=== PATIENT | male | born 1995 | race Caucasian/White ===

== ENCOUNTER 2016-05-15 09:43 | Emergency (ER) | payer MEDICAID, OTHER ==
[~2016-05-15] VITALS: Wt 120.0 kg
[~2016-05-15 09:43] MED LIST: AMOXICILLIN; FLONASE
--- NOTE | 2016-05-15 11:20 | RADRPT ---
PROCEDURE: XR Chest. CLINICAL INDICATION: Hemoptysis. TECHNIQUE: Single frontal view. COMPARISON: 02/25/2012. FINDINGS: The lungs are clear. The heart size is normal. There is no pleural effusion. There is no pneumothorax. IMPRESSION: 1. Normal chest radiograph. 2. No change from 02/25/2012. RPTAT: QQ .Miguelito Peters MD, MD Date Time Electronically viewed and signed by .Miguelito Peters MD, MD on 05/15/2016 11:20 .R/
[2016-05-15] MEDS ORDERED: D-ME473S18 PO (11:38)
[2016-05-15] MEDS ORDERED: AZIT250T94 PO (11:38)
--- NOTE | 2016-05-15 11:42 | ERD ---
ER Documentation Chief Complaint Date/Time DATE: 05/15/16 TIME: 11:40 Chief Complaint HEMOPTYSIS X 3 DAYS HPI This 20-year-old male presents with a productive cough for last 3 days. He has had some blood-tinged sputum. Denies fevers, shortness breath, chest pain, vomiting or abdominal pain. Patient states that he is recovering from a left tympanic membrane traumatic perforation sustained 2 weeks ago per ROS All systems reviewed and are negative except as per history of present illness. Medications Home Meds Active Scripts Dextromethorphan Hb-Promethazine Hcl (Promethazine DM Syrup) 473 Ml Syrup, 5 ML PO Q6H Y for COUGH, #4 OZ Prov:MERT CARROLL MD 05/15/16 Azithromycin* (Zithromax*) 250 Mg Tablet, 250 MG PO .ZPACK DIRECTED, #6 TAB TAKE 500 MG (2 TABS) THE FIRST DAY THEN 250 MG (1 TAB) DAYS 2-5 Prov:MERT CARROLL MD 05/15/16 Reported Medications [Flonase] No Conflict Check 02/25/12 [Amoxicillin] No Conflict Check 02/25/12 Allergies Allergies: Coded Allergies: No Known Allergy (Unverified , 02/25/12) PMhx/Soc Hx Alcohol Use: No Hx Substance Use: No Hx Tobacco Use: No Physical Exam Vitals Vital Signs Date Time Temp Pulse Resp B/P Pulse Ox O2 Delivery O2 Flow Rate FiO2 05/15/16 09:49 98.0 89 18 135/79 99 Physical Exam Const: [] Alert, [id number]. Head: Atraumatic Eyes: Normal Conjunctiva ENT: Normal External Ears, Nose and Mouth. Left TM is red with decreased light reflex. There is a healing perforation with no active bleeding or discharge. Tonsils 2+ with erythema. There is postnasal drip. Neck: Full range of motion..~ No meningismus. Resp: Clear to auscultation bilaterally Cardio: Regular rate and rhythm, no murmurs Abd: Soft, non tender, non distended. Normal bowel sounds Skin: No petechiae or rashes Back: No midline or flank tenderness Ext: No cyanosis, or edema Neur: Awake and alert Psych: Normal Mood and Affect Procedures/MDM Chest X-ray 1V Interpreted by me: Soft Tissue: No acute abnormalities Bones: No acute abnormalities Mediastinum/Cardiac Silhouette/Lungs: [No acute abnormalities]. Impression- normal 1 view chest x-ray Patient presents with URI symptoms productive cough and signs of otitis media. Will treat with Zithromax, promethazine. There is no evidence of hypoxemia, respiratory distress. The patient was stable with no new complaints during the ER course. Clinically, there is no current evidence to suggest meningitis, sepsis, acute abdomen, pneumonia, acute coronary syndrome, pulmonary embolism, or any other emergent condition appearing to require further evaluation or hospitalization. The patient should certainly return for any new or worsening symptoms per the aftercare instructions. They should otherwise follow-up with her primary care doctor for reevaluation this week. Departure Diagnosis: Primary Impression: Otitis media Otitis media type: suppurative Laterality: left Chronicity: acute Recurrence: not specified as recurrent Spontaneous tympanic membrane rupture: without spontaneous rupture Qualified Code: H66.002 - Acute suppurative otitis media of left ear without spontaneous rupture of tympanic membrane, recurrence not specified Additional Impressions: Cough Bronchitis Condition: Stable Patient Instructions: Acute Bronchitis, Otitis Media, Abx Tx (Adult) Additional Instructions: X-ray normal today. We will treat for bronchitis and ear infection. Recheck for new or worsening symptoms with primary care doctor. MERT CARROLL MD May 15, 2016 11:42
== END 2016-05-15 11:47 | disposition home or self-care (01) ==
LOC: FTE 09:43
DX: H66.002 Acute suppurative otitis media without spontaneous rupture of ear drum, left ear (principal); J20.9 Acute bronchitis, unspecified
CPT/HCPCS: 71010; Z7502

== ENCOUNTER 2017-09-20 17:49 | Emergency (ER) | END 2017-09-20 19:18 | disposition home or self-care (01) ==